=== PATIENT | male | born 1935 | race Caucasian/White ===

== ENCOUNTER 2019-10-04 16:11 | Emergency (ER) | payer MEDICARE, OTHER ==
--- NOTE | 2019-10-04 16:35 | ED.PDOC ---
History of Present Illness - General Chief Complaint: General Stated Complaint: Generalized weakness Time Seen by Provider: 10/04/19 16:33 - History of Present Illness Initial Comments: 84 yo pleasant male comes in with with one week of just not feeling right. Generalized malaise. Owns a home, work outside in heat one week ago. Has not been able to bounce back. + shortness of breath. Denies chest pain, abdominal pain, n/v/d. Hx of CABG. See's dr. Noel in [place] cardiology. is not on any blood thinners. Allergies/Adverse Reactions: Allergies NO KNOWN ALLERGY Allergy (Verified 10/04/19 16:28) Home Medications: Ambulatory Orders Coenzyme Q10 (Ubidecarenone) [Coq-10] 1 cap PO DAILY 01/15/15 [place]-3 Fatty Acids [Fish Oil] 1,000 mg PO DAILY 01/15/15 Vitamin E 400 unit PO DAILY 01/15/15 Naproxen Sodium [Anaprox DS] 550 mg PO BID #20 tab 01/27/15 Tamsulosin HCl [Flomax] 0.4 mg PO DAILY PRN #5 cap 01/27/15 Review of Systems - Review of Systems Constitutional: States: malaise. Denies: chills, diaphoresis, fever EENTM: Denies: blurred vision, double vision, ear discharge, nose congestion, throat pain, throat swelling Respiratory: States: short of breath. 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 Denies: headache, numbness, paresthesia, seizure, tingling, tremors, weakness Endocrine: Denies: increased hunger, increased thirst, increased urine, unexplained weight gain, unexplained weight loss Hematologic/Lymphatic: Denies: anemia, blood clots, easy bleeding, easy bruising Past Medical History (General) - Patient Medical History Hx Stroke: No Hx Cardiac Disorders: Yes - cabg Hx Congestive Heart Failure: No Hx Diabetes: No - Vaccination History Hx Influenza Vaccination: Yes Hx Pneumococcal Vaccination: Yes - Social History Hx Tobacco Use: No Hx Alcohol Use: No Hx Substance Use: No Hx Substance Use Treatment: No Hx Depression: No - Female History Patient : No Family Medical History - Family History Father Living Status: Hx Cardiac Disease: Yes Physical Exam - Physical Exam General Appearance: Alert, Comfortable, No apparent distress, Other - stable gait Eye Exam: bilateral normal Ears, Nose, Throat: hearing grossly normal, normal ENT inspection, normal pharynx Neck: non-tender, full range of motion, supple, normal inspection Respiratory: chest non-tender, lungs clear, normal breath sounds, no respiratory distress, no accessory muscle use Cardiovascular/Chest: normal peripheral pulses, regular rate, rhythm, no edema, no gallop, no JVD, no murmur Peripheral Pulses: radial,right: 2+, radial,left: 2+, dorsalis pedis,right: 2+, dorsalis pedis,left: 2+ Gastrointestinal/Abdominal: normal bowel sounds, non tender, soft, no organomegaly, no pulsatile mass Rectal Exam: deferred Back Exam: normal inspection, no CVA tenderness, no vertebral tenderness Extremity: normal range of motion, non-tender, normal inspection, no pedal edema, no calf tenderness, normal capillary refill Neurologic: no motor/sensory deficits, alert, normal mood/affect, oriented x 3, other - 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 Due to history of cardiac disease will hold off on fluids for now. CXR shows no acute pathology. EKG shows sinus bradycardia with 1st degree of AV block. Nonspecific st changes in anterior leads. Blood work shows Trop 5.91, BNP 1200. Will give aspirin and start heparin drip. The data reviewed when caring for this patient included: nurse notes, prior records, etc. The history and assessments from nurses notes were reviewed and considered, and the patient's home medication list was also reviewed and considered. My assessment and the results of testing completed here in the ED were discussed with the patient/family. All questions were answered, and they express understanding of my assessment and the plan. I recommended transfer to [facility], family would like [facility]. Family refusing transport by ambulance will have them sign an AMA form. Understand patient is having a heart attack and is on medicine that would require ambulane for transfer. Understand the risk of taking on vehicle. still opt to do so. Discussed case with Dr. Frazier in ED, accepted for transfer. Bradycardic at 60 otherwise vital signs stable. Patient was stable at the time of depature. Avis Waggoner DO #[id number] 10/04/19 19:06 - Results/Orders Results/Orders: 10/04/19 16:45 EKG STAT 10/04/19 16:56 RESPIRATORY PANEL 2 Stat 10/04/19 18:00 Heparin Premix [Heparin/D5w 25,000U/500ML] 25,000 units Premix Bag 1 bag IVS PRN Laboratory Results WBC 7.3 K/mm3 (4.8-10.8) 10/04/19 16:33 RBC 3.97 M/mm3 (4.70-6.10) L 10/04/19 16:33 Hgb 14.0 gm/dL (14.0-18.0) 10/04/19 16:33 Hct 40.6 % (42.0-52.0) L 10/04/19 16:33 MCV 102.1 fl (80.0-94.0) H 10/04/19 16:33 MCH 35.2 pg (27.0-31.0) H 10/04/19 16:33 MCHC 34.5 g/dL (33.0-37.0) 10/04/19 16:33 RDW 12.7 % (11.5-14.5) 10/04/19 16:33 Plt Count 142 K/mm3 (130-400) 10/04/19 16:33 MPV 8.3 fl (7.40-10.4) 10/04/19 16:33 Absolute Neuts (auto) 5.70 K/uL (1.8-6.8) 10/04/19 16:33 Absolute Lymphs (auto) 0.90 K/uL (1.0-3.4) L 10/04/19 16:33 Absolute Monos (auto) 0.60 K/uL (0.2-0.8) 10/04/19 16:33 Absolute Eos (auto) 0.00 K/uL (0.0-0.4) 10/04/19 16:33 Absolute Basos (auto) 0.00 K/uL (0.0-0.1) 10/04/19 16:33 Neutrophils % 77.9 % (42.0-78.0) 10/04/19 16:33 Lymphocytes % 12.1 % (20.0-50.0) L 10/04/19 16:33 Monocytes % 8.8 % (2.0-9.0) 10/04/19 16:33 Eosinophils % 0.7 % (1.0-5.0) L 10/04/19 16:33 Basophils % 0.5 % (0.0-2.0) 10/04/19 16:33 PT 10.1 SECONDS (9.0-10.9) 10/04/19 16:45 INR 1.02 (0.9-1.15) 10/04/19 16:45 PTT (SP) 25.4 SECONDS (21.8-31.6) 10/04/19 16:45 Sodium 140 mmol/L (135-145) 10/04/19 16:45 Potassium 3.9 mmol/L (3.6-5.0) 10/04/19 16:45 Chloride 106 mmol/L (101-111) 10/04/19 16:45 Carbon Dioxide 26 mmol/L (21-31) 10/04/19 16:45 Anion Gap 11.9 (12-18) L 10/04/19 16:45 BUN 31 mg/dL (7-18) H 10/04/19 16:45 Creatinine 1.41 mg/dL (0.6-1.3) H 10/04/19 16:45 BUN/Creatinine Ratio 22.0 (10-20) H 10/04/19 16:45 Random Glucose 140 mg/dL (70-105) H 10/04/19 16:45 Serum Osmolality 288.2 mOsm/L (275-295) 10/04/19 16:45 Calcium 8.6 mg/dL (8.4-10.2) 10/04/19 16:45 Phosphorus 3.6 mg/dL (2.5-4.6) 10/04/19 16:45 Magnesium 2.1 mg/dL (1.8-2.5) 10/04/19 16:45 Total Bilirubin 0.9 mg/dL (0.2-1.0) 10/04/19 16:45 AST 43 IU/L (10-42) H 10/04/19 16:45 ALT 42 IU/L (10-60) 10/04/19 16:45 Alkaline Phosphatase 65 IU/L (42-121) 10/04/19 16:45 Creatine Kinase 195 IU/L (38-174) H 10/04/19 16:45 Troponin I 5.91 ng/mL (0.01-0.05) H* 10/04/19 16:45 B-Natriuretic Peptide 1200.0 pg/ml (0-100) H* 10/04/19 16:45 Serum Total Protein 7.1 gm/dL (6.4-8.2) 10/04/19 16:45 Albumin 3.7 g/dl (3.2-5.5) 10/04/19 16:45 Globulin 3.4 gm/dL (2.3-3.5) 10/04/19 16:45 Albumin/Globulin Ratio 1.1 (1.1-1.9) 10/04/19 16:45 TSH 4.25 uIU/mL (0.34-5.60) 10/04/19 16:45 Urine Color Dk yellow (Yellow) 10/04/19 18:40 Urine Appearance Clear (Clear) 10/04/19 18:40 Urine pH 5.0 (4.5-7.8) 10/04/19 18:40 Ur Specific Media 1.025 (1.005-1.030) 10/04/19 18:40 Urine Protein Negative mg/dL 10/04/19 18:40 Urine Glucose (UA) Negative mg/dL (Negative) 10/04/19 18:40 Urine Ketones Negative mg/dL (NEGATIVE) 10/04/19 18:40 Urine Blood Negative (Negative) 10/04/19 18:40 Urine Nitrite Negative 10/04/19 18:40 Urine Bilirubin Small (NEGATIVE) H 10/04/19 18:40 Urine Urobilinogen 1.0 mg/dL (0.2-1.0) 10/04/19 18:40 Ur Leukocyte Esterase Negative (Negative) 10/04/19 18:40 Urine RBC 0 /hpf 10/04/19 18:40 Urine WBC 1-3 /hpf 10/04/19 18:40 Ur Epithelial Cells 0 /hpf 10/04/19 18:40 Urine Bacteria 0 10/04/19 18:40 Urine Mucus Small 10/04/19 18:40 Departure - Departure Clinical Impression: NSTEMI (non-ST elevated myocardial infarction) Time of Disposition: 17:53 Disposition: Transfer to Hospital Departure Forms: ED Discharge - Pt. Copy, Patient Portal Self Enrollment Referrals: Navarro Segal MD [Primary Care Provider] - 1-2 Weeks Home Medications: Ambulatory Orders Coenzyme Q10 (Ubidecarenone) [Coq-10] 1 cap PO DAILY 01/15/15 [place]-3 Fatty Acids [Fish Oil] 1,000 mg PO DAILY 01/15/15 Vitamin E 400 unit PO DAILY 01/15/15 Naproxen Sodium [Anaprox DS] 550 mg PO BID #20 tab 01/27/15 Tamsulosin HCl [Flomax] 0.4 mg PO DAILY PRN #5 cap 01/27/15 Transfer to Outside Facility - Transfer Information Decision to Transfer Date: 10/04/19 Decision to Transfer Time: 17:30 Reason for Transfer: required specialist not available
--- NOTE | 2019-10-04 17:29 | RAD ---
EXAM DESCRIPTION: Chest,2 Views CLINICAL HISTORY: shortness of breath COMPARISON: None TECHNIQUE: PA/lateral FINDINGS: Sternotomy wires are present. Heart size is normal with normal pulmonary vascularity. No pleural effusion or pneumothorax. Lungs are clear with no consolidating infiltrate. Lateral view shows intact sternum and T-spine. Prominent interstitial markings in lower lung zones but no consolidation to suggest pneumonia. IMPRESSION: No acute process is identified in the chest. Electronically signed by: Jarad Szymanski MD 10/04/2019 5:28 PM CDT
[2019-10-04] MEDS: SODIUM CHLORIDE 0.9% 500ML 500 ML IVS ONE ×2 (17:38→17:49)
[2019-10-04] MEDS ORDERED: ASPIRIN (CHEWABLE) 81 MG TAB PO ONE (17:41)
[2019-10-04] MEDS ORDERED: HEPARIN SODIUM (PORCINE) 5,000 U/ML VIAL IV ONE (17:42)
[2019-10-04] MEDS ORDERED: HEPARIN PREMIX 25,000 UNITS in PREMIX BAG 1 BAG IVS SCH (18:00)
[2019-10-04 19:26] VITALS: BP 133/92; TEMP 98.5; O2SAT 96
== END 2019-10-04 19:50 | disposition short-term general hospital (02) ==
LOC: ER 16:11
DX: I21.4 Non-ST elevation (NSTEMI) myocardial infarction (principal); R06.02 Shortness of breath; G51.0 Bell's palsy; Z95.1 Presence of aortocoronary bypass graft
CPT/HCPCS: 36415; 71046; 80053; 81001; 82550; 83735; 83880; 84100; 84443; 84484; 85025; 85610; 85730; 93005; J1644